=== PATIENT | female | born 1940 | race Caucasian/White ===

== ENCOUNTER 2019-06-24 12:44 | Day surgery (SDC) | payer MEDICARE, OTHER ==
[~2019-06-24] VITALS: Ht 157.5 cm; Wt 55.1 kg
[~2019-06-24 12:44] MED LIST: ACYC400 PO; HYDACE5 PO; MECL25 PO; NAPR550 PO; RALO60 PO; RXNAPNA550 PO; SIMV40 PO
== END 2019-06-24 14:45 | disposition home or self-care (01) ==
LOC: ORSCSDS 12:44
PROVIDERS: Internal Medicine Gastroenterology
PROC: 0DBK8ZX Excision of Ascending Colon, Via Natural or Artificial Opening Endoscopic, Diagnostic (ICD-10-PCS; principal; 2019-06-24 14:00)
DX: Z12.11 Encounter for screening for malignant neoplasm of colon (principal); D12.2 Benign neoplasm of ascending colon; Z80.0 Family history of malignant neoplasm of digestive organs; K64.4 Residual hemorrhoidal skin tags; Z79.899 Other long term (current) drug therapy
CPT/HCPCS: 88305; J2704; J7120

== ENCOUNTER → 2019-06-29 | Outpatient (CLI) | payer MEDICARE, OTHER | END | disposition home or self-care (01) | LOC: PLD 11:09 → LAB SHORT 11:09 | DX: D04.71 Carcinoma in situ of skin of right lower limb, including hip (principal) | CPT/HCPCS: 88305 ==

== ENCOUNTER → 2021-04-05 | Outpatient (CLI) | payer MEDICARE, OTHER | LOC: LAB SHORT 11:12 → LAB 11:12 | DX: D48.5 Neoplasm of uncertain behavior of skin (principal); L57.0 Actinic keratosis | CPT/HCPCS: 88305 ==

== ENCOUNTER → 2023-06-11 | Outpatient (CLI) | payer MEDICARE, OTHER | LOC: PLD 14:53 → LAB SHORT 14:53 | DX: D04.4 Carcinoma in situ of skin of scalp and neck (principal) | CPT/HCPCS: 88305 ==

== ENCOUNTER → 2024-01-29 | Outpatient (CLI) | payer MEDICARE, OTHER | LOC: LAB 12:30 → LAB SHORT 12:30 | DX: N39.0 Urinary tract infection, site not specified (principal) | CPT/HCPCS: 87077; 87086; 87186 ==

== ENCOUNTER → 2024-07-06 | Outpatient (CLI) | payer MEDICARE, OTHER ==
[2024-07-06 10:06] LABS: Source, Urine Clean Catch
[2024-07-06 10:09] LABS: Appearance, Urine Clear (Clear); Bilirubin, Urine Neg (Neg); Blood, Urine Neg (Neg); Color, Urine Yellow (P-Yellow); Glucose Qualitative, Urine Neg (Normal); Ketones, Urine Neg (Neg); Leukocyte Esterase, Urine Neg (Neg); Nitrite, Urine Neg (Neg); Protein, Urine Neg (Neg); Specific Gravity, Urine 1.005 (1.003-1.022); Urobilinogen, Urine NORM (Normal)
== END ==
LOC: LAB SHORT 09:40 → LAB 09:40
PROVIDERS: Internal Medicine
DX: N18.31 Chronic kidney disease, stage 3a (principal)
CPT/HCPCS: 81003